=== PATIENT | female | born 1950 | race Caucasian/White ===

== ENCOUNTER → 2022-05-31 | Outpatient (CLI) | payer MEDICARE ==
--- NOTE | 2022-05-31 11:55 | CT ---
EXAMINATION TYPE: CT lumbar spine w con CT DLP: 2018.7 mGycm, Automated exposure control for dose reduction was used. DATE OF EXAM: 05/31/2022 11:36 AM COMPARISON: None. CLINICAL INDICATION:Female, 71 years old with history of M48.00 spinal stenosis; PHH, Spinal stenosis . TECHNIQUE: Multiple axial images were obtained from the midportion of T11 through the sacroiliac rashaad nts after the uneventful administration of 70 mL of Isovue 300. Soft tissue and bone windows in edward nal and sagittal planes were obtained and reviewed. FINDINGS: Alignment: There are 5 lumbar type vertebral bodies. Grade 1 anterolisthesis of L4 on L5 without evid ence of pars defects. Mild retrolisthesis of L1 on L2. Bone: No evidence of fracture is identified. Multilevel facet arthropathy. Multilevel anterior osteo phytosis. Discs: Multilevel disc space narrowing with vacuum disc disease and endplate sclerosis. T12-L1: Broad-based disc bulge without significant effacement of the anterior thecal sac. The bilater al neural foramina are patent. L1-L2: Mild retrolisthesis of L1 on L2. Bilateral facet arthropathy. Mild effacement of the anterior thecal sac. Mild bilateral neural foraminal stenosis. L2-L3: Broad-based disc bulge without significant central canal stenosis. Bilateral facet arthropathy . The neural foramen are patent bilaterally. L3-L4: No spinal canal or neural foraminal stenosis is identified. Bilateral facet arthropathy. L4-L5: Grade 1 anterolisthesis of L4 on L5 with uncovering of the disc. Broad-based disc bulge. Bila teral facet arthropathy demonstrated. Ligamentum flavum flavum buckling suggested. This contributes t o mild to moderate central canal stenosis. Mild bilateral neural foraminal stenosis. L5-S1: Broad-based disc bulge without significant central canal stenosis. Bilateral facet arthropathy . The neural foramen are patent bilaterally. Other: Moderate atelectatic calcification of the aorta and its branches. Ectasia of the distal abdomi nal aorta measuring up to 2.8 cm. Multiple perigastric collaterals identified. IMPRESSION: 1. No evidence of fracture of the lumbar spine. 2. Moderate multilevel degenerative disc and osteoarthritic changes. This is most pronounced at L4-L5 resulting in mild to moderate central canal stenosis. 3. Grade 1 anterolisthesis of L4 on L5 with mild retrolisthesis L1 on L2. 4. Distal abdominal aortic ectasia measuring up to 2.8 cm. 5. Multiple perigastric collateral vessels identified.
== END | disposition home or self-care (01) ==
LOC: RADUSWWP 09:43
PROVIDERS: ATTEND Internal Medicine Geriatric Medicine
DX: I71.40 Abdominal aortic aneurysm, without rupture, unspecified (principal); M51.36 Other intervertebral disc degeneration, lumbar region; M47.816 Spondylosis without myelopathy or radiculopathy, lumbar region; M43.16 Spondylolisthesis, lumbar region; M48.061 Spinal stenosis, lumbar region without neurogenic claudication
CPT/HCPCS: 82565; 84520; 72132; 36415; Q9967

== ENCOUNTER → 2023-06-09 | Outpatient (CLI) | payer MEDICARE ==
[2023-06-09 13:30] VITALS: BP 142/76; PULSE 72; RESP 15; TEMP 98.6
--- NOTE | 2023-06-09 14:44 | P.PAINPG ---
Objective - Vital Signs Vital signs: Intake & Output 06/08/23 06/09/23 06/09/23 18:59 06:59 18:59 Weight 96.162 kg PQRS Measure Charge Sheet Comment: HISTORY OF PRESENT ILLNESS: A 72 yr old female as a referral from Dr Gillespie presents today w severe and chronic LBP x 1 yr secondary to DDD, spondylosis and facet arthropathy without myelopathy for evaluation. Pt states pain level is provoked at 7 /10 in intensity, constant, localized in the lower lumbar spine, predominantly axial, achy in character without occasional shooting pain. Pain is provoked by bending. Pain is alleviated by physician guided home exercises and stretches every morning since Mar 2023, medications (Oldhams 10/325mg #60), topical Simone-Lambert, manual massage, repositioning and rest. Pt can not do formal PT or chiropractry due to provoked pain from Fibromyalgia. Oswestry axial pain score at 26. PMH: OA, HTN, Hyperlipidemia, NIDDM II, Fibromyalgia, Gout, GERD, AAA, CAD, CKD PSH: Colonoscopy (2015) SH: Hx of tobacco use, Rare ETOH use, No illicit drug use FH: Fa- CAD All: See list Meds: See list REVIEW OF ORGAN SYSTEMS: CONSTITUTIONAL: No fevers or chills. No recent weight loss. NEUROLOGICAL: + numbness and tingling along the distal extremities. No seizure disorders or headaches. MUSCULOSKELETAL: + pain PSYCHIATRIC: Denies current depression or suicidal thoughts. Physical Examinations : Constitutional : Cooperative , not in acute distress . Neurologic : Cranial nerve II to XII intact. No focal neurological deficits. Psychiatric : alert & oriented x 3. Matching mood & appropriate affect. Judgment & insight intact. Musculoskeletal : Cervical Spine Motor strength in the deltoid and biceps: Normal right side. Normal Left side Motor strength biceps and the wrist extensors: Normal right side . Normal left side Motor strength in the triceps muscle: Normal right side. Normal left side Deep tendon reflexes: Normal at the biceps. Normal at Brachioradialis. Normal at triceps Vertebral body tenderness to deep palpation over Cervical facet loading test: positive bilaterally Spurling test: positive bilaterally Neck distraction test: positive bilaterally Melvina sign: positive bilaterally Lumbar spine Motor strength lower extremities ,thigh and legs 5/5 Right side , 5/5 Left side Deep tendon reflexes : Normal Knee Jerk. Normal Ankle Jerk Vertebral body tenderness over L4 Marks Test positive Lumbar facet Loading Test: positive Right / positive Left Range of motion of the lumbar spine Flexion 30 degrees, extension 10 degrees Straight Leg Raise test: Left> Right positive at 30 degrees Diane test: positive right / positive left. Severe tenderness over the Sacroiliac joint on the Right / Left sides Gaenslen test: positive bilaterally Seated flexion test: positive bilaterally. Sacral spine : Severe tenderness over the Sacroiliac joint: right side / left side Range of motion: Flexion of the lumbar spine <60 degrees Range of motion: Extension of the lumbar spine <20 degrees Gaenslen's Test positive Diane test: positive right side / left side Thigh Thrust Test Sacral Thrust Test Imaging: Noncontrast of the lumbar spine from 05/31/2022 reviewed Assessment/ Plan : Lumbar DDD Recommendation of ALFONSO L4-L5 #1. May need a series of injections for optimal pain relief. Risks, benefits of procedure discussed and patient verbalized understanding. Admits to anti- coagulant use or medical history of diabetes. Protocol for discontinuation/ continuation of medications akanksha procedure discussed. All questions answered. I have spent greater than 30 minutes on patient care today. Dr Herzog was available by phone for the evaluation of this patient. The time was used to review the medical records including relevant urine studies and Prescription history (MAPs), review of the available imaging, evaluation and examination of the patient, coordination of care with the medical staff and if applicable referring physicians, as well as creation of the medical record PQRS Narrative: Smoking Status Former smoker Home Medications: Ambulatory Orders Famotidine 20 mg PO DAILY 08/02/14 Folic Acid 1 mg PO DAILY 08/02/14 Insulin Glargine [Lantus] 15 units SQ HS 08/02/14 Simvastatin [Zocor] 40 mg PO DAILY 08/02/14 allopurinoL [Zyloprim] 300 mg PO DAILY 08/02/14 carvediloL [Coreg] 6.25 mg PO BID 08/02/14 glipiZIDE/METFORMIN HCL [glipiZIDE/METFORMIN HCL 2.5-500 mg] 2 tab PO BID 08/02/14 lisinopriL [Zestril] 2.5 mg PO DAILY 08/02/14 Hydrocodone/Acetaminophen [Oldhams 5-325] 1 - 2 each PO Q4HR PRN #30 tab 05/29/15 Aspirin [Adult Low Dose Aspirin EC] 81 mg PO DAILY 01/17/16 Colchicine 0.6 mg PO DAILY PRN 01/17/16 Indomethacin [Indocin] 50 mg PO DAILY PRN 01/17/16 Controlled Substance Measures - Controlled Substance Measures Is patient prescribed a controlled substance at discharge?: No
== END ==
LOC: PNWHC3 12:33
PROVIDERS: ATTEND Specialist
DX: M48.07 Spinal stenosis, lumbosacral region (principal); M51.36 Other intervertebral disc degeneration, lumbar region; F12.90 Cannabis use, unspecified, uncomplicated; Z87.891 Personal history of nicotine dependence; Z88.2 Allergy status to sulfonamides
CPT/HCPCS: 99211

== ENCOUNTER → 2023-10-09 | Outpatient (CLI) | payer MEDICARE ==
--- NOTE | 2023-10-09 18:27 | CA ---
Transthoracic Echo Report Name: Alise Lu Age: 72 Gender: F : 1950 Exam Date: 10/09/2023 16:08 Exam Location: [facility] Ht (in): 63 Wt (lb): 212 Ordering Physician: Ryan Gillespie MD Attending/Referring Phys: Ve[facility] W[facility] Flight Attendant In[employer] Nahomy León RDCS Procedure CPT: Indications: I50.42 CHRONIC COMBINED SYSTOLIC AND DIASTOLIC HRT Cardiac Hx: Cardiomyopathy, MV Replacement Technical Quality: Poor, Technically difficult study Contrast 1: Definity Total Dose (mL): 2 Contrast 2: Total Dose (mL): MEASUREMENTS (Male / Female) Normal Values 2D ECHO LV Diastolic Diameter PLAX 6.0 cm 4.2 - 5.9 / 3.9 - 5.3 cm LV Systolic Diameter PLAX 5.6 cm IVS Diastolic Thickness 1.2 cm 0.6 - 1.0 / 0.6 - 0.9 cm LVPW Diastolic Thickness 1.2 cm 0.6 - 1.0 / 0.6 - 0.9 cm LV Relative Wall Thickness 0.4 RV Internal Dim ED PLAX 2.1 cm LA Systolic Diameter LX 6.0 cm 3.0 - 4.0 / 2.7 - 3.8 cm M-MODE Aortic Root Diameter MM 2.6 cm LA Systolic Diameter MM 5.6 cm LA Ao Ratio MM 2.1 AV Cusp Separation MM 1.4 cm DOPPLER AV Peak Velocity 189.8 cm/s AV Peak Gradient 14.4 mmHg AV Mean Velocity 133.5 cm/s AV Mean Gradient 8.2 mmHg AV Velocity Time Integral 42.5 cm LVOT Peak Velocity 67.1 cm/s LVOT Peak Gradient 1.8 mmHg LVOT Velocity Time Integral 15.9 cm MV Peak Velocity 275.8 cm/s MV Peak Gradient 30.4 mmHg MV Mean Velocity 187.4 cm/s MV Mean Gradient 16.0 mmHg MV Velocity Time Integral 104.5 cm TR Peak Velocity 253.7 cm/s TR Peak Gradient 25.8 mmHg FINDINGS Left Ventricle Left ventricular ejection fraction is estimated at 20-25%. Mildly increased septal wall thickness. Mildly increased posterior wall thickness. Moderately increased left ventricular diastolic diameter. Severely reduced global left ventricular systolic function. Right Ventricle Normal right ventricular size and function. Normal right ventricular size and function. Right Atrium Mild right atrial dilatation. Catheter/pacemaker wire in the right atrial cavity. Left Atrium Severely increased left atrial diameter. Mitral Valve Porcine mitral valve bioprosthesis. Gradient recorded across the prosthetic mitral valve above the expected range. MV Mean Gradient 16 mmHg. Trace mitral regurgitation. Aortic Valve Trileaflet aortic valve. Diffuse thickening (sclerosis) of the aortic valve cusps without reduced excursion. No aortic regurgitation. Tricuspid Valve Structurally normal tricuspid valve. Mild tricuspid regurgitation. Pulmonic Valve Structurally normal pulmonic valve. [id number] pulmonic regurgitation. No pulmonic stenosis. Pericardium No pericardial or pleural effusion. Aorta Normal size aortic root and proximal ascending aorta. CONCLUSIONS Diagnosis congestive heart failure, shortness of breath on exertion Dilated left ventricle with severe LV dysfunction ejection fraction less than 20% Severe left atrial enlargement Bioprosthetic mitral valve with a mean gradient of 16 mmHg Previewed by: Dr. Shahid Yoder MD (Electronically Signed) Final Date: 09 October 2023 18:26
== END | disposition home or self-care (01) ==
LOC: RADECHMAIN 15:39
PROVIDERS: ATTEND Internal Medicine Geriatric Medicine
DX: I50.42 Chronic combined systolic (congestive) and diastolic (congestive) heart failure (principal); I51.7 Cardiomegaly; R06.02 Shortness of breath; Z95.3 Presence of xenogenic heart valve
CPT/HCPCS: C8929; Q9957; 93306

== ENCOUNTER → 2023-10-09 | Outpatient (CLI) | payer MEDICARE ==
--- NOTE | 2023-10-09 18:47 | XR ---
EXAMINATION TYPE: XR chest 2V DATE OF EXAM: 10/09/2023 4:04 PM CLINICAL INDICATION:Female, 72 years old with history of R06.02 CH XRC2V; PHH COMPARISON: Chest radiographs from TECHNIQUE: XR chest 2V Frontal view of the chest. FINDINGS: Lungs/Pleura: There is no evidence of pleural effusion, focal consolidation, or pneumothorax. Pulmonary vascularity: Unremarkable. Heart/mediastinum: Cardiomediastinal silhouette is unremarkable. Atherosclerotic calcifications are seen in the aorta. Single-lead cardiac conduction device overlying the left hemithorax with lead proj ecting over the right ventricle. Musculoskeletal: No acute osseous pathology. IMPRESSION: No acute cardiopulmonary disease/process.
== END | disposition home or self-care (01) ==
LOC: RADXRMAIN 15:48
PROVIDERS: ATTEND Internal Medicine Geriatric Medicine
DX: R06.02 Shortness of breath (principal)
CPT/HCPCS: 71046

== ENCOUNTER → 2024-01-24 | Outpatient (CLI) | payer MEDICARE ==
--- NOTE | 2024-01-24 13:01 | XR ---
EXAMINATION TYPE: XR chest 2V DATE OF EXAM: 01/24/2024 12:56 PM COMPARISON: None. CLINICAL INDICATION: Female, 73 years old with history of I50.22 CONGSTIVE HEART FAILURE, short of br eath, fatigue TECHNIQUE: XR chest 2V view(s) obtained. FINDINGS: The heart size is normal. The pulmonary vasculature is upper limits of normal. The lungs are clear. Pacemaker overlies left chest. IMPRESSION: 1. No acute pulmonary process. Consider impending volume overload. Follow-up can be performed as clin ically indicated [facility], , 01/24/2024 12:59 PM
== END | disposition home or self-care (01) ==
LOC: RADXRMAIN 12:36
PROVIDERS: ATTEND Internal Medicine Geriatric Medicine
DX: I50.22 Chronic systolic (congestive) heart failure (principal)
CPT/HCPCS: 71046

== ENCOUNTER 2024-03-13 14:10 | Emergency (ER) | payer MEDICARE ==
[2024-03-13 14:20] VITALS: TEMP 99.2
[2024-03-13 14:30] LABS: Basophils % (A) 0 %; Eosinophils % (A) 0 %; HCT 45.2 % (34.0-46.0); HGB 15.1 gm/dL (11.4-16.0); Lymphocytes # (A) 1.1 k/uL (1.0-4.8); Lymphocytes % (A) 10 %; MCH 33.1 pg (25.0-35.0); MCHC 33.4 g/dL (31.0-37.0); MCV 99.1 fL (80.0-100.0); Mean Platelet Volume 8.6; Monocytes # (A) 0.5 k/uL (0-1.0); Monocytes % (A) 5 %; Neutrophils % (A) 84 %; Platelet Count 113 k/uL (150-450); RBC 4.56 m/uL (3.80-5.40); RDW 12.8 % (11.5-15.5); WBC 10.7 k/uL (3.8-10.6)
[2024-03-13 14:38] VITALS: RESP 16
--- NOTE | 2024-03-13 14:40 | ED ---
General Adult HPI - General Chief complaint: Neuro Symptoms/Deficit Stated complaint: stroke Time Seen by Provider: 03/13/24 14:12 Source: EMS, RN notes reviewed, old records reviewed Mode of arrival: EMS Limitations: language barrier, altered mental status, physical limitation - History of Present Illness Initial comments: 73-year-old female presenting with suspected stroke, right-sided weakness. Last known well was yesterday at 5 PM. The patient was found by a family member or neighbor on the floor. She was mildly hypertensive with a normal blood sugar and stable vitals. Brought in as a priority 1 stroke activation. Known well approximately 21 hours prior to presentation - Related Data Home Medications Medication Instructions Recorded Confirmed Famotidine 20 mg PO DAILY 08/02/14 01/24/16 Folic Acid 1 mg PO DAILY 08/02/14 01/24/16 Insulin Glargine [Lantus] 15 units SQ HS 08/02/14 01/24/16 Simvastatin [Zocor] 40 mg PO DAILY 08/02/14 01/24/16 allopurinoL [Zyloprim] 300 mg PO DAILY 08/02/14 01/24/16 carvediloL [Coreg] 6.25 mg PO BID 08/02/14 01/24/16 glipiZIDE/METFORMIN HCL 2 tab PO BID 08/02/14 01/24/16 [glipiZIDE/METFORMIN HCL 2.5-500 mg] lisinopriL [Zestril] 2.5 mg PO DAILY 08/02/14 01/24/16 Aspirin [Adult Low Dose Aspirin EC] 81 mg PO DAILY 01/17/16 01/24/16 Colchicine 0.6 mg PO DAILY PRN 01/17/16 01/24/16 Indomethacin [Indocin] 50 mg PO DAILY PRN 01/17/16 01/24/16 Previous Rx's Medication Instructions Recorded Hydrocodone/Acetaminophen [[employer] - 2 each PO Q4HR PRN #30 tab 08/05/14 5-325] Allergies Allergy/AdvReac Type Severity Reaction Status Date / Time Sulfa (Sulfonamide Allergy Rash/Hives Verified 03/13/24 14:20 Antibiotics) Review of Systems ROS Statement: Those systems with pertinent positive or pertinent negative responses have been documented in the HPI. ROS Other: All systems not noted in ROS Statement are negative. Past Medical History Past Medical History: Diabetes Mellitus, Deep Vein Thrombosis (DVT), Hyperlipidemia Additional Past Medical History / Comment(s): HX CARDIOMYOPATHY, HX OF DVT IN LEGS AGE 20, gout History of Any Multi-Drug Resistant Organisms: None Reported Past Surgical History: AICD, Cholecystectomy, Hernia Repair, Hysterectomy Additional Past Surgical History / Comment(s): DEFIBRILLATOR TURNED OFF 07/2014, HAS HAD PREVIOUS LEFT UPPER BACK SEBACIOUS CYST I&D Past Anesthesia/Blood Transfusion Reactions: No Reported Reaction Type of Cardiac Device: AICD Device Placement Date:: 2007? Past Psychological History: Anxiety Smoking Status: Never smoker Past Alcohol Use History: Rare Past Drug Use History: Marijuana - Past Family History Father Family Medical History: Cancer Additional Family Medical History / Comment(s): COLON General Exam Limitations: language barrier, altered mental status, physical limitation General appearance: in no apparent distress, lethargic Head exam: Present: atraumatic, normocephalic Eye exam: Present: normal appearance, PERRL, other (Gaze to the left) Respiratory exam: Present: normal lung sounds bilaterally. Absent: respiratory distress, wheezes Cardiovascular Exam: Present: regular rate, normal rhythm GI/Abdominal exam: Present: soft. Absent: distended, tenderness, guarding Neurological exam: Present: motor sensory deficit (Hemiplegic on the right, facial droop, no movement of the right arm or leg, dysarthria and expressive aphasia, right-sided neglect and leftward gaze). Absent: oriented X3, CN II-XII intact Skin exam: Present: warm, dry, intact Course Vital Signs 03/13/24 03/13/24 03/13/24 14:10 14:30 14:37 Temperature 99.2 F Pulse Rate 93 97 96 Respiratory 16 18 16 Rate Blood Pressure 135/69 94/47 148/65 O2 Sat by Pulse 97 96 Oximetry 03/13/24 14:43 Temperature Pulse Rate 88 Respiratory 16 Rate Blood Pressure 132/64 O2 Sat by Pulse 96 Oximetry - Reevaluation(s) Reevaluation #1: 03/13/24 14:24 Case discussed with the stroke interventionalists Dr. Aguayo Medical Decision Making - Medical Decision Making Was pt. sent in by a medical professional or institution (, PA, [facility], urgent care, hospital, or usp...) When possible be specific @ -No Did you speak to anyone other than the patient for history (EMS, parent, family, police, friend...)? What history was obtained from this source @ -No Did you review nursing and triage notes (agree or disagree)? Why? @ -I reviewed and agree with nursing and triage notes Were old charts reviewed (outside hosp., previous admission, EMS record, old EKG, old radiological studies, urgent care reports/EKG's, usp records)? Report findings @ -No old charts were reviewed Differential CVA Ischemic stroke, hemorrhagic stroke, brain tumor, atypical migraine, Wernicke's encephalopathy, seizure, multiple sclerosis, meningitis, encephalitis, hypoglycemia, Guillain-Landon, electrolytes disturbance, myasthenia gravis.... T his is not meant to be an all-inclusive list EKG interpreted by me (3pts min.). @Ectopic atrial rhythm intraventricular conduction delay ventricular rate of 89, HI interval 165, QRS duration 146, QTc [address] segment elevation. X-rays interpreted by me (1pt min.). @ -None done CT interpreted by me (1pt min.). @ -CT brain without contrast negative for intracranial hemorrhage, CT angiography by Dr. Aguayo with left MCA occlusion U/S interpreted by me (1pt. min.). @ -None done What testing was considered but not performed or refused? (CT, X-rays, U/S, labs)? Why? @ -None What meds were considered but not given or refused? Why? @ -None Did you discuss the management of the patient with other professionals (professionals i.e. , PA, [facility], lab, RT, psych nurse, social service worker, outside cutter, teacher, weapons officer naval activity, continuous pillowcase cutter)? Give summary @ -[Dr. Aguayo, transfer to [facility] for thrombectomy Was smoking cessation discussed for >3mins.? @ -No Was critical care preformed (if so, how long)? @ -yes 35 min Were there social determinants of health that impacted care today? How? (Homel essness, low income, unemployed, alcoholism, drug addiction, transportation, low edu. Level, literacy, decrease access to med. care, assisted, rehab)? @ -No Was there de-escalation of care discussed even if they declined (Discuss DNR or withdrawal of care, Hospice)? DNR status @ -No What co-morbidities impacted this encounter? (DM, HTN, Smoking, COPD, CAD, Cancer, CVA, ARF, Chemo, Hep., AIDS, mental health diagnosis, sleep apnea, morbid obesity)? @Unknown Was patient admitted / discharged? Hospital course, mention meds given and route, prescriptions, significant lab abnormalities, going to OR and other pertinent info. @ -73-year-old female with right-sided hemiplegia, NIH of 21, last known well was yesterday 5 PM, patient is a code stroke activation, taken immediately to CT where she received CT and CT angiography. CT without contrast is negative for intracranial hemorrhage, CT angiography showing occlusion of the left MCA. Patient given aspirin and Brilinta through NG tube as recommended by Dr. Aguayo and transferred to [facility] for stroke intervention, thrombectomy. Undiagnosed new problem with uncertain prognosis? @ -No Drug Therapy requiring intensive monitoring for toxicity (Heparin, Nitro, Insulin, Cardizem)? @ -No Were any procedures done? @ -No Diagnosis/symptom? @ -Left MCA occlusion, hemiplegic stroke Acute, or Chronic, or Acute on Chronic? @ -Acute Uncomplicated (without systemic symptoms) or Complicated (systemic symptoms)? @ -Complicated Side effects of treatment? @ -No Exacerbation, Progression, or Severe Exacerbation? @ -No Poses a threat to life or bodily function? How? (Chest pain, [place], [place], pneumonia, PE, COPD, DKA, ARF, appy, cholecystitis, CVA, Diverticulitis, Homicidal, Suicidal, threat to staff... and all critical care pts) @ -Yes, hemiplegic stroke - Lab Data Result diagrams: 03/13/24 14:19 03/13/24 14:19 Lab Results 03/13/24 03/13/24 03/13/24 Range/Units 14:19 14:19 14:19 WBC 10.7 H (3.8-10.6) k/uL RBC 4.56 (3.80-5.40) m/uL Hgb 15.1 (11.4-16.0) gm/dL Hct 45.2 (34.0-46.0) % MCV 99.1 (80.0-100.0) fL MCH 33.1 (25.0-35.0) pg MCHC 33.4 (31.0-37.0) g/dL RDW 12.8 (11.5-15.5) % Plt Count 113 L (150-450) k/uL MPV 8.6 Neutrophils % 84 % Lymphocytes % 10 % Monocytes % 5 % Eosinophils % 0 % Basophils % 0 % Neutrophils # 9.0 H (1.3-7.7) k/uL Lymphocytes # 1.1 (1.0-4.8) k/uL Monocytes # 0.5 (0-1.0) k/uL Eosinophils # 0.0 (0-0.7) k/uL Basophils # 0.0 (0-0.2) k/uL PT 10.9 (10.0-12.5) sec INR 1.0 (<1.2) APTT 24.5 (22.0-30.0) sec Sodium 137 (137-145) mmol/L Potassium 4.8 (3.5-5.1) mmol/L Chloride 106 (98-107) mmol/L Carbon Dioxide 20 L (22-30) mmol/L Anion Gap 11 mmol/L BUN 18 H (7-17) mg/dL Creatinine 1.20 H (0.52-1.04) mg/dL Est GFR (CKD-EPI)AfAm 52 (>60 ml/min/1.73 sqM) Est GFR (CKD-EPI)NonAf 45 (>60 ml/min/1.73 sqM) Glucose 153 H (74-99) mg/dL Calcium 9.8 (8.4-10.2) mg/dL Total Bilirubin 1.0 (0.2-1.3) mg/dL AST 28 (14-36) U/L ALT 14 (4-34) U/L Alkaline Phosphatase 69 (38-126) U/L Creatine Kinase 71 (30-135) U/L Total Protein 7.9 (6.3-8.2) g/dL Albumin 4.5 (3.5-5.0) g/dL Critical Care Time Critical Care Time: Yes Total Critical Care Time: 35 Disposition Clinical Impression: Cerebrovascular accident (CVA) Disposition: OTHER INSTITUTION NOT DEFINED Condition: Serious Is patient prescribed a controlled substance at d/c from ED?: No Referrals: None,Stated [REFERRING] - 1-2 days Time of Disposition: 14:52 - Out of Hospital Transfer - Req. Specs Out of Hospital Transfer - Requested Specifics: Other Emergency Center (Transfer to [facility])
[2024-03-13 14:44] LABS: Partial Thromboplastin Time 24.5 sec (22.0-30.0); Prothrombin Time 10.9 sec (10.0-12.5)
[2024-03-13 14:46] LABS: ALT 14 U/L (4-34); AST 28 U/L (14-36); African American GFR (CKD) 52 (>60 ml/min/1.73 sqM); Albumin 4.5 g/dL (3.5-5.0); Alkaline Phosphatase 69 U/L (38-126); Anion Gap 11 mmol/L; Blood Urea Nitrogen 18 mg/dL (7-17); Calcium 9.8 mg/dL (8.4-10.2); Carbon Dioxide 20 mmol/L (22-30); Chloride 106 mmol/L (98-107); Creatine Kinase 71 U/L (30-135); Glucose 153 mg/dL (74-99); Non-African American GFR(CKD) 45 (>60 ml/min/1.73 sqM); Potassium 4.8 mmol/L (3.5-5.1); Sodium 137 mmol/L (137-145); Total Protein 7.9 g/dL (6.3-8.2)
--- NOTE | 2024-03-13 14:46 | CT ---
EXAMINATION TYPE: CODE STROKE: CT brain wo contr DATE OF EXAM: 03/13/2024 2:34 PM COMPARISON: None. CLINICAL INDICATION: Female, 73 years old with history of Neuro deficit, acute, stroke suspected, cva TECHNIQUE: Brain: Axial CT images of the brain were obtained with coronal and sagittal reformats created and rev iewed. Contrast used: None. Oral contrast used: None. CT DLP: 1170.8 mGycm, Automated exposure control for dose reduction was used. FINDINGS: Brain: Extra-axial spaces: No abnormal extra-axial fluid collections. Ventricular system: Dilatation in proportion to cerebral atrophy. Cerebral parenchyma: No acute intraparenchymal hemorrhage or mass effect. The thomas-white junction is well differentiated. Scattered hypoattenuating areas are seen within the white matter. Cerebellum: Unremarkable. Mass effect: No evidence of midline shift. Intracranial vasculature: unremarkable Soft tissues: Normal. Calvarium/osseous structures: No depressed skull fracture. Paranasal sinuses and mastoid air cells: Mild scattered paranasal sinus disease. Visualized orbits: Bilateral aphakia IMPRESSION: No acute intracranial hemorrhage, midline shift or significant mass effect. [facility], , 03/13/2024 2:44 PM
--- NOTE | 2024-03-13 15:09 | CT ---
EXAMINATION TYPE: CT angio head neck DATE OF EXAM: 03/13/2024 2:54 PM COMPARISON: None available. CLINICAL INDICATION: Female, 73 years old with history of Neuro deficit, acute, stroke suspected; PHH , cva TECHNIQUE: Axially acquired helical CT angiogram of the head and neck was obtained with contrast. Axi al images are supplemented with 3D reconstructions and MIP images which were post-processed at an in dependent workstation. NASCET criteria used. Contrast used:65cc mL of Isovue 370 with IV Contrast, Oral contrast used: None. CT DLP: 793.1 mGycm, Automated exposure control for dose reduction was used. FINDINGS: CTA HEAD: No evidence of acute intracranial hemorrhage, mass effect, or midline shift. Questionable loss of the thomas-white matter differentiation in the region of the left MCA territory. The ventricles, sulci, an d cisterns are unremarkable. Vertebral arteries: The vertebral arteries are patent. Vertebral artery dominance: Codominant Basilar artery: The basilar artery is intact. The basilar artery bifurcation is normal. Internal Carotid arteries: The cervical, petrous, cavernous and supraclinoid segments demonstrates ca lcified plaque without flow-limiting stenosis. DOMINGO: Patent with no evidence of aneurysm. ACOM: Present without evidence of aneurysm. 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 Right middle cerebral artery appears patent . 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 PCOM: Hypoplastic bilaterally. Dural sinuses: Patent. CTA NECK: Right Carotid System: The common carotid and external carotid arteries are patent. There is less than 50 % stenosis at the carotid bifurcation secondary to calcified/noncalcified plaque. The rest of the internal carotid carrol ry is patent. Left Carotid System: The common carotid and external carotid arteries are patent. There is less than 50 % stenosis at the carotid bifurcation secondary to calcified/noncalcified plaque. The rest of the internal carotid carrol ry is patent. Vertebral arteries are patent without evidence hemodynamically significant stenosis. There is a common origin of the right brachiocephalic and left common carotid arteries aortic arch. T he origins of the great vessels are grossly patent. No evidence of hemodynamically significant stenos is. Upper thorax: Dilated main pulmonary artery measuring 4.1 cm in diameter suggestive of pulmonary hypertension. Left chest wall cardiac AICD device. Emphysema and scattered subcentimeter pulmonary nodules in the parti ally visualized lungs. 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 *Critical findings were discussed with Dr. Danis Ibanez at 2:55 PM on 03/13/2024. [facility], Workstation: [id number], 03/13/2024 3:07 PM
[2024-03-13] MEDS: SODIUM CHLORIDE 0.9% 500 ML 500 ML IV ONE (15:10)
[2024-03-13] MEDS: SODIUM CHLORIDE 0.9% 1,000 ML IV SCH (15:10)
[2024-03-13] MEDS: TICAGRELOR 90 MG TAB PO STA (15:11)
[2024-03-13] MEDS: ASPIRIN 81 MG PO STA (15:11)
--- NOTE | 2024-03-13 15:30 | XR ---
EXAMINATION TYPE: XR chest 1V portable DATE OF EXAM: 03/13/2024 3:23 PM COMPARISON: Previous chest radiograph dated 01/24/2024. CLINICAL INDICATION: Female, 73 years old with history of NG placement; [facility] TECHNIQUE: XR chest 1V portable Frontal view of the chest. FINDINGS: Cardiomegaly. Left chest wall cardiac AICD device with lead overlying the region of the right ventricle. Enteric tube in place with distal tip seen in the region of the gastric lumen. Sidehole not well visu alized due to technical factors. No acute focal consolidation. No pleural effusion. No pneumothorax or No acute osseous abnormality. IMPRESSION: 1. No acute cardiopulmonary disease/process. 2. Distal tip of enteric tube overlies the gastric lumen in the upper quadrant. Sidehole not well vi sualized, likely due to technique related factors. [facility], , 03/13/2024 3:28 PM
[2024-03-13 15:36] VITALS: BP 150/64; PULSE 90
== END 2024-03-13 15:40 | disposition other institution (70) ==
LOC: EC 14:10
DX: I63.9 Cerebral infarction, unspecified (principal); Z88.2 Allergy status to sulfonamides
CPT/HCPCS: 36415; 93005; 80053; 82550; 84484; 85025; 85610; 85730; 71045; 70496; 70450; 70498; 99291; Q9967